=== PATIENT | female | born 1960 | race Caucasian/White ===

== ENCOUNTER 2018-02-20 07:14 | Outpatient (CLI) | payer OTHER | END 2018-02-20 07:16 | disposition home or self-care (01) | LOC: SONOGRAMA 07:14 | DX: E04.1 Nontoxic single thyroid nodule (principal) ==

== ENCOUNTER → 2019-07-05 | Day surgery (SDC) | payer OTHER ==
[~2019-07-05] MED LIST: ADULT ASPIRIN R81 MG PO; CQ10; ENBREL50 MG/1 ML SUBCUTANEO; LIPITOR80 MG PO; PROPAFENONE HC225 M1 PO; TOPROL XL25 M1 PO; ZESTRIL5 MG PO
== END | disposition home or self-care (01) ==
LOC: ADM 06-29 09:00 → CIR.AMB 05:26 → ADM 09:00 → CIR.AMB 09:00
DX: M75.111 Incomplete rotator cuff tear or rupture of right shoulder, not specified as traumatic (principal); M75.21 Bicipital tendinitis, right shoulder; M25.311 Other instability, right shoulder